=== PATIENT | male | born 1990 | race Caucasian/White ===

== ENCOUNTER 2024-02-18 23:09 | Emergency (ER) | payer OTHER ==
[~2024-02-18] VITALS: Ht 170.2 cm; Wt 88.5 kg
[2024-02-18 23:46] VITALS: BP 119/61; PULSE 98; RESP 16; TEMP 98.4; O2SAT 100
[2024-02-19 01:22] LABS: FLU A ANTIGEN negative (NEGATIVE); FLU B ANTIGEN NEGATIVE (NEGATIVE)
[2024-02-19] MEDS: NACL 0.9% 1,000 ML IV ONE (01:31)
[2024-02-19] MEDS: METOCLOPRAMIDE 10 MG/2 ML INJ VIAL IVP ONE (01:33)
[2024-02-19] MEDS: KETOROLAC 30 MG/ML VIAL IVP ONE (01:34)
[2024-02-19] MEDS ORDERED: IBUP-2217 PO (03:39)
[2024-02-19] MEDS: ACETAMINOPHEN EXTRA STRENGTH 500 MG TAB PO ONE (03:43)
[2024-02-19 04:05] VITALS: TEMP 99
[2024-02-20] MEDS ORDERED: ONDA-188 SL (08:53)
[2024-02-20] MEDS ORDERED: BEN10 PO (08:53)
[2024-02-20] MEDS ORDERED: ACET500T99 PO (08:53)
[2024-02-20] MEDS ORDERED: LOPE1TAB14 PO (08:53)
== END 2024-02-19 04:05 | disposition home or self-care (01) ==
LOC: MED 23:09
DX: B34.9 Viral infection, unspecified (principal); Z20.822 Contact with and (suspected) exposure to COVID-19; Z79.899 Other long term (current) drug therapy
CPT/HCPCS: 87426; 87804; 96361; 96374; 96375; 99284; J1885; J2765; J7030

== ENCOUNTER 2024-02-20 06:48 | Emergency (ER) | payer OTHER ==
[~2024-02-20] VITALS: Ht 172.7 cm; Wt 99.8 kg
[~2024-02-20 06:48] MED LIST: IBUP-2217 PO
[2024-02-20 06:50] VITALS: BP 113/67; PULSE 110; RESP 20; TEMP 98.7; O2SAT 97
[2024-02-20 07:19] LABS: BASOPHILS % (AUTO) 0.1 % (0.0-2.0); HEMATOCRIT 42.2 % (36-52); HEMOGLOBIN 14.4 g/dL (12.0-18.0); LYMPHOCYTES # (AUTO) 1.2 K/uL (2.0-11.5); LYMPHOCYTES % (AUTO) 12.5 % (20.5-51.1); MEAN CORPUSCULAR HEMOGLOBIN 28 pg (27-31); MEAN CORPUSCULAR HGB CONC 34 g/dL (33-37); MEAN CORPUSCULAR VOLUME 83.1 fL (80-94); MONOCYTES # (AUTO) 0.6 K/uL (0.8-1.0); MONOCYTES % (AUTO) 5.9 % (1.7-9.3); NEUTROPHILS # (AUTO) 8.1 K/uL (1.8-7.7); NEUTROPHILS % (AUTO) 81.5 % (42.2-75.2); PLATELET COUNT (AUTO) 190 K/uL (140-450); RED BLOOD CELL COUNT(AUTO) 5.08 MIL/uL (4.20-6.10); RED CELL DISTRIBUTION WIDTH 15.1 % (11.6-13.7); WHITE BLOOD COUNT (AUTO) 9.9 K/uL (4.8-10.8)
[2024-02-20 07:37] LABS: FLU A ANTIGEN negative (NEGATIVE); FLU B ANTIGEN negative (NEGATIVE)
[2024-02-20 07:46] LABS: ANION GAP 13.8 (8-16); CALCIUM 8.6 mg/dL (8.5-10.1); CREATININE 1.2 mg/dL (0.6-1.3); POTASSIUM 3.8 mmol/L (3.5-5.1)
[2024-02-20 08:08] LABS: ALBUMIN 3.3 g/dL (3.4-5.0); BILIRUBIN,DIRECT 0.1 mg/dL (0.0-0.3); TOTAL BILIRUBIN 0.5 mg/dL (0.0-1.0); TOTAL PROTEIN, SERUM 7.5 g/dL (6.4-8.2)
[2024-02-20 08:22] LABS: APPEARANCE,URINE CLEAR (CLEAR); BILIRUBIN,URINE NEGATIVE (NEGATIVE); BLOOD, URINE TRACE-I (NEGATIVE); COLOR,URINE YELLOW (YELLOW); LEUKOCYTE ESTERASE ,URINE NEGATIVE (NEGATIVE); NITRITE, URINE NEGATIVE (NEGATIVE); PROTEIN,URINE 1+ (NEGATIVE); UGLUCOSE NEGATIVE (NEGATIVE); UROBILINOGEN,URINE 0.2 EU/dL (0.2 - 1)
[2024-02-20 08:39] LABS: RBC,URINE FEW /HPF (0-5); SQUAMOUS EPITHELIAL CELL,UR None Seen /LPF (0-3 (FEW))
[2024-02-20 08:40] LABS: MUCUS,URINE None Seen /LPF (None Seen); TRICHOMONAS,URINE None Seen /HPF (None Seen); YEAST,URINE None Seen /HPF (None Seen)
[2024-02-20 08:41] LABS: WBC,URINE 0-5 /HPF (0-5)
[2024-02-20 08:42] LABS: BACTERIA,URINE OCCASSIONAL /HPF (None Seen)
[2024-02-20] MEDS ORDERED: ACET-10509 PO (08:53)
[2024-02-20] MEDS ORDERED: BEN10 PO (08:53)
[2024-02-20] MEDS ORDERED: LOPE1TAB14 PO (08:53)
[2024-02-20] MEDS ORDERED: ONDA-188 SL (08:53)
== END 2024-02-20 08:57 | disposition home or self-care (01) ==
LOC: MED 06:48
DX: B34.9 Viral infection, unspecified (principal); Z20.822 Contact with and (suspected) exposure to COVID-19; Z79.899 Other long term (current) drug therapy
CPT/HCPCS: 36415; 71045; 80048; 80076; 81001; 82550; 85025; 86308; 99284